=== PATIENT | male | born 1960 | race Caucasian/White ===

== ENCOUNTER 2024-11-25 07:58 | Day surgery (SDC) | payer MEDICARE, BC ==
[2024-11-25] MEDS ORDERED: fentaNYL 250 MCG/5 ML SDV ONE (08:28)
[2024-11-25] MEDS ORDERED: Glycopyrrolate 0.2 MG/ML 5 ML MDV ONE (08:29)
[2024-11-25] MEDS ORDERED: Succinylcholine 200 MG/10 ML MDV ONE (08:29)
[2024-11-25] MEDS ORDERED: Rocuronium 50 MG/5 ML Vial ONE (08:29)
[2024-11-25] MEDS ORDERED: Propofol 200 MG/20 ML SDV ONE (08:29)
[2024-11-25] MEDS ORDERED: Ondansetron 4 MG/2 ML SDV ONE (08:29)
[2024-11-25] MEDS ORDERED: Neostigmine Methylsulfate 10 MG/10 ML MDV ONE (08:29)
[2024-11-25] MEDS ORDERED: Dexamethasone 4 MG/ML SDV ONE (08:29)
[2024-11-25] MEDS: Lactated Ringers 1,000 ML IV SCH (08:50)
[2024-11-25] MEDS: Bupivacaine 0.25%/EPINEPHrine 1:200,000 30 ML SDV ONE (11:05)
[2024-11-25] MEDS ORDERED: Sugammadex Sodium 200 MG/2 ML VIAL IV ONE (11:14)
[2024-11-25] MEDS ORDERED: Ketorolac 30 MG/ML SDV ONE (11:17)
[2024-11-25] MEDS ORDERED: oxyCODONE 5 MG Tab PO PRN (12:06)
== END 2024-11-25 13:25 | disposition home or self-care (01) ==
LOC: JP.SDS 07:58
PROVIDERS: ATTEND Surgery
DX: K42.9 Umbilical hernia without obstruction or gangrene (principal); I10 Essential (primary) hypertension; Z79.899 Other long term (current) drug therapy
CPT/HCPCS: 49591; J0330; J0690; J1100; J1596; J1885; J2405; J2704; J2710; J3010; J7120; 00830-QZ; J3490